=== PATIENT | male | born 1995 | race Caucasian/White ===

== ENCOUNTER 2016-12-22 10:43 | Emergency (ER) | payer SELFPAY ==
[2016-12-22] MEDS ORDERED: OXYCODONE-ACETAMINOPHEN 5-325 MG TABLET PO ONE (11:06)
--- NOTE | 2016-12-22 12:08 | RADIOLOGY REPORT (SQ) ---
EXAM DESCRIPTION: L SPINE WHOLE COMPLETED DATE/TIME: 12/22/2016 11:31 am REASON FOR STUDY: pain COMPARISON: None. NUMBER OF VIEWS: Five views including obliques. TECHNIQUE: AP, lateral, oblique, and sacral radiographic images acquired of the lumbar spine. LIMITATIONS: None. FINDINGS: MINERALIZATION: Normal. SEGMENTATION: Normal. No transitional anatomy. ALIGNMENT: Normal. VERTEBRAE: Maintained height. No fracture or worrisome bone lesion. DISCS: Preserved height. No significant osteophytes or end plate irregularity. POSTERIOR ELEMENTS: Pedicles and facets are intact. No pars defect or posterior arch defects. HARDWARE: None in the spine. PARASPINAL SOFT TISSUES: Normal. PELVIS: Intact as visualized. No fractures or worrisome bone lesions. SI joints intact. OTHER: No other significant finding. IMPRESSION: NORMAL 5 VIEW LUMBAR SPINE. TECHNICAL DOCUMENTATION: JOB ID: [id number] [employer]- All Rights Reserved
--- NOTE | 2016-12-22 12:24 | ER Document Report ---
HPI - HPI Patient complains to provider of: back pain Onset: Just prior to arrival Onset/Duration: Sudden Quality of pain: Sharp Severity: Severe Pain Level: 5 Context: Patient states he bent over today at work to grab shovel and began experiencing sharp pains to his lower back. No pain radiation down legs, no loss of control of bowels or bladder. Denies previous history of back problems. Patient works in construction. Pain is intermittent, depending on movements. Patient states he was able to walk into the emergency room without any difficulty. Associated Symptoms: None Exacerbated by: Movement Relieved by: Remaining still Similar symptoms previously: No Recently seen / treated by doctor: No - ROS ROS below otherwise negative: Yes Systems Reviewed and Negative: Yes All other systems reviewed and negative - CONSTITUTIONAL Constitutional: DENIES: Fever - EENT EENT: DENIES: Nasal Drainage-Purulent - NEURO Neurology: DENIES: Headache - CARDIOVASCULAR Cardiovascular: DENIES: Chest pain - RESPIRATORY Respiratory: DENIES: Trouble Breathing - GASTROINTESTINAL Gastrointestinal: DENIES: Abdominal Pain - URINARY Urinary: DENIES: Dysuria - MUSCULOSKELETAL Musculoskeletal: REPORTS: Back Pain - DERM Skin Color: Normal Skin Problems: None Past Medical History - General Information source: Patient - Social History Smoking Status: Current Every Day Smoker Cigarette use (# per day): Yes Frequency of alcohol use: Occasional Drug Abuse: None Lives with: Family Family History: CAD, CVA, Hyperlipidemia, Hypertension, Malignancy Patient has suicidal ideation: No Patient has homicidal ideation: No Pulmonary Medical History: Reports: Hx Asthma Musculoskeltal Medical History: Reports Hx Arthritis, Reports Hx Musculoskeletal Deformity, Reports Hx Musculoskeletal Trauma Traumatic Medical History: Reports: Hx Fractures - KNEE CAP Past Surgical History: Reports: Hx Orthopedic Surgery - right knee - Immunizations Immunizations up to date: No Hx Diphtheria, Pertussis, Tetanus Vaccination: No Vertical Provider Document - CONSTITUTIONAL Agree With Documented VS: Yes General Appearance: WD/WN, No Apparent Distress - Laying in bed without pain at this time. - INFECTION CONTROL TRAVEL OUTSIDE OF THE [place] IN LAST 30 DAYS: No - HEENT HEENT: Atraumatic, Normocephalic - NECK Neck: Supple - RESPIRATORY Respiratory: Breath Sounds Normal, No Respiratory Distress O2 Sat by Pulse Oximetry: 100 - CARDIOVASCULAR Cardiovascular: Regular Rate, Regular Rhythm - GI/ABDOMEN Gastrointestinal: Abdomen Soft, Abdomen Non-Tender, Normal Bowel Sounds - BACK Notes: Back is nontender to palpation, pain occurs only with movements. Pain reproduced by leg raises, but patient denies radiation of pain down his legs. - MUSCULOSKELETAL/EXTREMETIES Musculoskeletal/Extremeties: Non-Tender, No Edema - NEURO Level of Consciousness: Awake, Alert, Appropriate Motor/Sensory: No Motor Deficit, No Sensory Deficit - DERM Integumentary: Warm, Dry Course - Re-evaluation Re-evalutation: 12/22/16 12:26 X-rays negative and discussed with patient - Vital Signs Vital signs: Temp Pulse Resp BP Pulse Ox 98.1 F 72 18 120/57 L 100 12/22/16 10:48 12/22/16 10:48 12/22/16 10:48 12/22/16 10:48 12/22/16 10:48 Discharge - Discharge Clinical Impression: Low back pain Qualifiers: Chronicity: acute Back pain laterality: midline Sciatica presence: without sciatica Qualified Code(s): M54.5 - Low back pain Condition: Good Disposition: HOME, SELF-CARE Instructions: Ice Packs ([facility]), Low Back Pain ([facility]), Oral Narcotic Medication ( [facility]), Warm Packs ([facility]) Additional Instructions: Meds as prescribed Ice or heat packs to back Recommend no heavy lifting for 2 weeks Follow-up with your primary care doctor next week for recheck Return if worsens and as needed Prescriptions: Cyclobenzaprine HCl [Flexeril 5 mg Tablet] 5 mg PO TID #15 tablet Ibuprofen 800 mg PO TID #30 tablet Oxycodone HCl/Acetaminophen [Percocet 5-325 mg Tablet] 1 - 2 tab PO ASDIR PRN # 15 tablet PRN Reason: Forms: Return to Work, Restricted Release
[2016-12-22 12:51] VITALS: BP 131/75
== END 2016-12-22 12:51 | disposition home or self-care (01) ==
LOC: ER 10:43
DX: M54.5 Low back pain (principal); M54.9 Dorsalgia, unspecified; F17.210 Nicotine dependence, cigarettes, uncomplicated
CPT/HCPCS: 72110; 99283

== ENCOUNTER 2017-04-02 08:54 | Emergency (ER) | payer SELFPAY ==
[2017-04-02 09:14] VITALS: BP 111/76
[2017-04-02] MEDS ORDERED: LIDOCAINE 1% INJ-PF (10 MG/ML) 30 ML SDV INJ ONE (09:21)
--- NOTE | 2017-04-02 09:26 | ER Document Report ---
ED General - General Chief Complaint: Laceration Stated Complaint: ARM INJURY Time Seen by Provider: 04/02/17 09:17 Mode of Arrival: Ambulatory Information source: Patient Notes: 22 yr old male presents with complaints of left elbow laceration with a piece of glass at 7pm last night. pt notes it was closing but he bent his arm and it opened this morning. pt notes tetanus is up to day. denies any other injuries TRAVEL OUTSIDE OF THE [place] IN LAST 30 DAYS: No - HPI Onset: Yesterday Onset/Duration: Sudden Quality of pain: Sharp Severity: Mild Pain Level: Denies Associated symptoms: None Exacerbated by: Denies Relieved by: Denies Similar symptoms previously: No Recently seen / treated by doctor: No - Related Data Allergies/Adverse Reactions: No Known Allergies Allergy (Verified 04/02/17 09:12) Past Medical History - Social History Smoking Status: Never Smoker Cigarette use (# per day): No Chew tobacco use (# tins/day): No Smoking Education Provided: No Family History: CAD, CVA, Hyperlipidemia, Hypertension, Malignancy Patient has suicidal ideation: No Pulmonary Medical History: Reports: Hx Asthma Renal/ Medical History: Denies: Hx Peritoneal Dialysis Musculoskeltal Medical History: Reports Hx Arthritis, Reports Hx Musculoskeletal Deformity, Reports Hx Musculoskeletal Trauma Traumatic Medical History: Reports: Hx Fractures - KNEE CAP Past Surgical History: Reports: Hx Orthopedic Surgery - right knee - Immunizations Immunizations up to date: No Hx Diphtheria, Pertussis, Tetanus Vaccination: No Review of Systems - Review of Systems Notes: REVIEW OF SYSTEMS: CONSTITUTIONAL : Denies fever, chills, or sweats. Denies recent illness. EENT: Denies eye, ear, throat, or mouth pain or symptoms. Denies nasal or sinus congestion or discharge. Denies throat, tongue, or mouth swelling or difficulty swallowing. CARDIOVASCULAR: Denies chest pain. Denies palpitations or racing or irregular heart beat. Denies ankle edema. RESPIRATORY: Denies cough, cold, or chest congestion. Denies shortness of breath, difficulty breathing, or wheezing. GASTROINTESTINAL: Denies abdominal pain or distention. Denies nausea, vomiting , or diarrhea. Denies blood in vomitus, stools, or per rectum. Denies black, tarry stools. Denies constipation. GENITOURINARY: Denies difficulty urinating, painful urination, burning, frequency, blood in urine, or discharge. MUSCULOSKELETAL: Denies back or neck pain or stiffness. Denies joint pain or swelling. SKIN: laceration HEMATOLOGIC : Denies easy bruising or bleeding. LYMPHATIC: Denies swollen, enlarged glands. NEUROLOGICAL: Denies confusion or altered mental status. Denies passing out or loss of consciousness. Denies dizziness or lightheadedness. Denies headache. Denies weakness or paralysis or loss of use of either side. Denies problems with gait or speech. Denies sensory loss, numbness, or tingling. Denies seizures. PSYCHIATRIC: Denies anxiety or stress. Denies depression, suicidal ideation, or homicidal ideation. ALL OTHER SYSTEMS REVIEWED AND NEGATIVE. Dictation was performed using [employer] voice recognition software PHYSICAL EXAMINATION: GENERAL: Well-appearing, well-nourished and in no acute distress. HEAD: Atraumatic, normocephalic. EYES: Pupils equal round and reactive to light, extraocular movements intact, sclera anicteric, conjunctiva are normal. ENT: Nares patent, oropharynx clear without exudates. Moist mucous membranes. NECK: Normal range of motion, supple without lymphadenopathy LUNGS: Breath sounds clear to auscultation bilaterally and equal. No wheezes rales or rhonchi. HEART: Regular rate and rhythm without murmurs ABDOMEN: Soft, nontender, nondistended abdomen. No guarding, no rebound. No masses appreciated. Musculoskeletal: Normal range of motion, no pitting or edema. No cyanosis. NEUROLOGICAL: Cranial nerves grossly intact. Normal speech, normal gait. Normal sensory, motor exams PSYCH: Normal mood, normal affect. SKIN: 5 cm supericial laceration just medial to the eblow , no joint invovlemnt , wound does dehisce when elobw is bent Physical Exam - Vital signs Vitals: Temp Pulse Resp BP Pulse Ox 97.8 F 63 18 111/76 100 04/02/17 09:13 04/02/17 09:13 04/02/17 09:13 04/02/17 09:13 04/02/17 09:13 Course - Re-evaluation Re-evalutation: 04/02/17 09:23 Given that the injury occurred approximately 14 hours ago there is high risk for infection however since the patient bends his elbow does open loose closure with sutures is appropriate at this time with the understanding that patient must return immediately if there is any worsening symptoms. Area was cleansed extensively. With no difficulty After performing a Medical Screening Examination, I estimate there is LOW risk for OPEN FRACTURE, COMPARTMENT SYNDROME, TENDON RUPTURE, ACUTE NEUROVASCULAR INJURY, or RETAINED FOREIGN BODY, thus I consider the discharge disposition reasonable. Also, there is no evidence or peritonitis, sepsis, or toxicity. I have reevaluated this patient multiple times and no significant life threatening changes are noted. The patient and I have discussed the diagnosis and risks, and we agree with discharging home with close follow-up with the understanding that symptoms and presentations can change. We also discussed returning to the Emergency Department immediately if new or worsening symptoms occur. We have discussed the symptoms which are most concerning (e.g., changing or worsening pain, fever, numbness, weakness, cool or painful digits) that necessitate immediate return. - Vital Signs Vital signs: Temp Pulse Resp BP Pulse Ox 97.8 F 63 18 111/76 100 04/02/17 09:13 04/02/17 09:13 04/02/17 09:13 04/02/17 09:13 04/02/17 09:13 Procedures - Laceration/Wound Repair Left Elbow Time completed: 09:25 Wound length (cm): 5 Wound's Depth, Shape: Superficial Laceration pre-procedure: Sterile PPE donned, Sterile drapes applied, Shur- Clens applied Anesthetic type: 1% Lidocaine Volume Anesthetic (mLs): 10 Wound explored: No foreign body removed, Contaminated Irrigated w/ Saline (mLs): 1,500 Wound Debrided: Minimal Wound Repaired With: Sutures Suture Size/Type: 5:0, Ethilon Number of Sutures: 3 Post-procedure wound care: Sterile dressing applied Post-procedure NV exam normal: Yes Complications: No Discharge - Discharge Clinical Impression: Elbow laceration Qualifiers: Encounter type: initial encounter Laterality: left Qualified Code(s): S51.012A - Laceration without foreign body of left elbow, initial encounter Condition: Stable Disposition: HOME, SELF-CARE Instructions: Laceration Care ([facility]), Soap Cleansing ([facility]), Antibiotic Ointment Protection ([facility]) Additional Instructions: You must return immediately if there is any sign of infection or any other concerns
== END 2017-04-02 10:13 | disposition home or self-care (01) ==
LOC: ER 08:54
PROC: 0HQEXZZ Repair Left Lower Arm Skin, External Approach (ICD-10-PCS; principal; 2017-04-02)
DX: S51.012A Laceration without foreign body of left elbow, initial encounter (principal); W25.XXXA Contact with sharp glass, initial encounter; J45.909 Unspecified asthma, uncomplicated
CPT/HCPCS: 99282; 12002; J3490

== ENCOUNTER 2017-05-29 20:36 | Emergency (ER) | payer SELFPAY ==
[2017-05-29 20:54] VITALS: BP 127/59
[2017-05-29] MEDS ORDERED: OXYCODONE-ACETAMINOPHEN 5-325 MG TABLET PO ONE (21:20)
[2017-05-29] MEDS ORDERED: SULFAMETHOXAZOLE/TRIMETHOPRIM 800-160 MG TABLET PO ONE (21:20)
--- NOTE | 2017-05-29 21:20 | ER Document Report ---
HPI - HPI Patient complains to provider of: Abscess Onset: Other - 3 days Onset/Duration: Worse Quality of pain: Sharp Pain Level: 5 Context: Patient states that he has had a cyst off and on to the sacral area that he is concerned about a pilonidal abscess. Patient states that he has had this flareup off and on for several years. Patient states the area has never drained. Patient states the area has become more tender over the past 3 days. Patient denies any fever. Associated Symptoms: Other - Sacral tenderness. denies: Fever Exacerbated by: Movement Relieved by: Denies Similar symptoms previously: Yes Recently seen / treated by doctor: No - ROS ROS below otherwise negative: Yes Systems Reviewed and Negative: Yes All other systems reviewed and negative - CONSTITUTIONAL Constitutional: DENIES: Fever, Chills - MUSCULOSKELETAL Musculoskeletal: REPORTS: Extremity pain - DERM Notes: Abscess to the sacral area Past Medical History - General Information source: Patient - Social History Smoking Status: Current Every Day Smoker Frequency of alcohol use: Occasional Drug Abuse: None Occupation: Hepa Washing Lives with: Family Family History: CAD, CVA, Hyperlipidemia, Hypertension, Malignancy Pulmonary Medical History: Reports: Hx Asthma Renal/ Medical History: Denies: Hx Peritoneal Dialysis Musculoskeltal Medical History: Reports Hx Arthritis, Reports Hx Musculoskeletal Deformity, Reports Hx Musculoskeletal Trauma Traumatic Medical History: Reports: Hx Fractures - KNEE CAP Past Surgical History: Reports: Hx Orthopedic Surgery - right knee - Immunizations Immunizations up to date: No Hx Diphtheria, Pertussis, Tetanus Vaccination: No Vertical Provider Document - CONSTITUTIONAL Agree With Documented VS: Yes Exam Limitations: No Limitations General Appearance: WD/WN, No Apparent Distress - INFECTION CONTROL TRAVEL OUTSIDE OF THE [place] IN LAST 30 DAYS: No - HEENT HEENT: Atraumatic, Normocephalic - NECK Neck: Normal Inspection, Supple - RESPIRATORY Respiratory: Breath Sounds Normal, No Respiratory Distress O2 Sat by Pulse Oximetry: 100 - CARDIOVASCULAR Cardiovascular: Regular Rate, Regular Rhythm - MUSCULOSKELETAL/EXTREMETIES Musculoskeletal/Extremeties: MAEW - NEURO Level of Consciousness: Awake, Alert, Appropriate Motor/Sensory: No Motor Deficit - DERM Integumentary: Warm, Dry, Abscess - Pilonidal abscess to left upper gluteal cleft Course - Vital Signs Vital signs: Temp Pulse Resp BP Pulse Ox 98.4 F 72 16 127/59 H 100 05/29/17 20:51 05/29/17 20:51 05/29/17 20:51 05/29/17 20:51 05/29/17 20:51 Procedures - Incision and Drainage Left Buttock Type: Simple Anesthetic type: 1% Lidocaine Blade size: 11 I&D procedure: Betadine prep applied Incision Method: Incision made by scalpel Amount/type of drainage: moderate amount of purulent/bloody drainage Discharge - Discharge Clinical Impression: Pilonidal abscess Condition: Stable Disposition: HOME, SELF-CARE Instructions: Abscess ([facility]), Oral Narcotic Medication ([facility]), Post Incision and Drainage, Trimethoprim-Sulfa ([facility]) Additional Instructions: Return immediately for any new or worsening symptoms Followup with your primary care provider, call tomorrow to make a followup appointment Prescriptions: Oxycodone HCl/Acetaminophen [Percocet 5-325 mg Tablet] 1 tab PO ASDIR PRN #12 tablet PRN Reason: Sulfamethoxazole/Trimethoprim [Bactrim Ds Tablet] 1 each PO BID #20 tablet Forms: Return to Work Referrals: [facility] [Provider Group] - Follow up as needed [facility] [Provider Group] - Follow up as needed
== END 2017-05-29 22:35 | disposition home or self-care (01) ==
LOC: ER 20:36
PROC: 0H98XZZ Drainage of Buttock Skin, External Approach (ICD-10-PCS; principal; 2017-05-29)
DX: L05.01 Pilonidal cyst with abscess (principal); F17.200 Nicotine dependence, unspecified, uncomplicated
CPT/HCPCS: 99283

== ENCOUNTER 2018-10-06 21:10 | Emergency (ER) | payer SELFPAY ==
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
[2018-10-07] MEDS ORDERED: ONDANSETRON ODT 4 MG TAB (6 TAB/ER DISP) PO PRN (02:01)
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
[2018-10-07 02:34] VITALS: BP 126/67
== END 2018-10-07 02:34 | disposition home or self-care (01) ==
LOC: ER 21:10
DX: S06.0X0A Concussion without loss of consciousness, initial encounter (principal); R51 Headache; H92.02 Otalgia, left ear; R11.2 Nausea with vomiting, unspecified; R41.0 Disorientation, unspecified; V49.40XA Driver injured in collision with unspecified motor vehicles in traffic accident, initial encounter; F17.200 Nicotine dependence, unspecified, uncomplicated; J45.909 Unspecified asthma, uncomplicated
CPT/HCPCS: 70450; 99283